=== PATIENT | female | born 1965 | race Caucasian/White ===

== ENCOUNTER 2021-03-02 13:48 | Emergency (ER) | payer OTHER ==
[2021-03-02 16:00] LABS: BASOPHIL 0.7 % (0-2); EOSINOPHIL 2.5 % (0-5); HCT 41.3 % (37.0-47.0); LYMPHOCYTE 26.4 % (15-48); MCH 32.1 pg (25.0-31.0); MCHC 33.9 g/dL (32.0-36.0); MCV 94.7 fL (78.0-100.0); MONOCYTE 7.2 % (0-12); MPV 9.1 fL (6.0-9.5); NEUTROPHIL 62.7 % (41-80); NRBC 0; PLT 299 K/uL (150-400); RBC 4.36 M/uL (4.20-5.40); RDW 11.9 % (11.5-14.0); WBC 8.8 K/uL (4.0-10.5)
[2021-03-02 16:02] LABS: AMPHETAMINES NEGATIVE (NEGATIVE); BARBITURATES NEGATIVE (NEGATIVE); BILIRUBIN NEGATIVE (NEGATIVE); BLOOD NEGATIVE Ery/uL (NEGATIVE); CLARITY CLEAR (CLEAR); COLOR YELLOW (YELLOW); ECSTASY (MDMA) NEGATIVE (NEGATIVE); GLUCOSE (U) NORMAL (NORMAL); LEUKOCYTES NEGATIVE Leu/uL (NEGATIVE); MARIJUANA (THC) NEGATIVE (NEGATIVE); METHADONE NEGATIVE (NEGATIVE); NITRITE NEGATIVE (NEGATIVE); OPIATES NEGATIVE (NEGATIVE); OXYCODONE NEGATIVE (NEGATIVE); PROTEIN NEGATIVE (NEGATIVE); SPECIFIC GRAVITY 1.015 (1.001-1.030); UROBILINOGEN 0.2 mg/dL (0.2-1.0); pH 7.5 (5.0-9.0)
[2021-03-02 16:22] LABS: ALBUMIN 4.4 g/dL (3.4-5.0); ALKALINE PHOSHATASE 81 U/L (46-116); ALT 47 U/L (14-59); AST 30 U/L (15-37); BILIRUBIN - TOTAL 0.5 mg/dL (0.2-1.0); BUN 14 mg/dL (7-18); BUN/CREAT RATIO (CALC) 13.7 RATIO; CHLORIDE 105 mmol/L (98-107); CO2 (BICARBONATE) 30 mmol/L (21-32); CREATININE 1.02 mg/dL (0.51-0.95); GLOBULIN (CALCULATION) 3.4 g/dL; GLUCOSE 104 mg/dL (74-106); POTASSIUM 3.7 mmol/L (3.5-5.1); TOTAL PROTEIN 7.8 g/dL (6.4-8.2)
== END 2021-03-02 17:15 | disposition home or self-care (01) ==
LOC: FER 13:48
PROVIDERS: Emergency Medicine
DX: G45.4 Transient global amnesia (principal)
CPT/HCPCS: 36415; 70450; 70551; 80053; 80305; 81003; 85025; G0480; J0780; J1200; J1885